=== PATIENT | female | born 1990 | race Caucasian/White ===

== ENCOUNTER 2021-08-18 00:18 | Emergency (ER) | payer MEDICAID ==
[~2021-08-18] VITALS: Ht 170.2 cm; Wt 68.0 kg
--- NOTE | 2021-08-18 02:22 | NUR ---
BIBS C/O DOG BITE TO LEFT THIGH. PATIENT ALERT AND ORIENTED X3. AMBULATORY WITH NON LABORED BREATHING. PATIENT IN BED 19 AWAITING MD CAMPO.
[2021-08-18] MEDS ORDERED: AMOX/CLAVULANATE 875 MG TABLET ONE (02:28)
[2021-08-18] MEDS ORDERED: AMOX-430 PO (02:30)
[2021-08-18] MEDS: AMOX/CLAVULANATE 875 MG TABLET PO ONE (02:33)
--- NOTE | 2021-08-18 02:33 | NUR ---
DR TOBIN AT PT'S BEDSIDE
[2021-08-18] MEDS ORDERED: TDAP [DIPH/PERTUSSIS/TET] 0.5 ML VIAL IM ONE (02:34)
[2021-08-18] MEDS: TDAP [DIPH/PERTUSSIS/TET] 0.5 ML VIAL IM ONE (02:43)
--- NOTE | 2021-08-18 02:44 | NUR ---
Patient discharged to home in stable condition. Written and verbal after care instructions given. Patient verbalizes understanding of instruction. PT ambulatory with a steady gait
[2021-08-18 02:45] VITALS: BP 145/77
== END 2021-08-18 02:45 | disposition home or self-care (01) ==
LOC: ER 00:21
DX: S70.312A Abrasion, left thigh, initial encounter (principal); S80.812A Abrasion, left lower leg, initial encounter; W54.0XXA Bitten by dog, initial encounter; Y93.89 Activity, other specified; Y92.89 Other specified places as the place of occurrence of the external cause; Y99.8 Other external cause status
CPT/HCPCS: 90715